=== PATIENT | male | born 1950 | race Caucasian/White ===

== ENCOUNTER 2023-07-28 09:04 | Outpatient (OUT) | payer MEDICARE, SELFPAY ==
[2023-07-29 04:11] LABS: PSA, Free 1.04 ng/mL
== END 2023-07-28 09:05 | disposition home or self-care (01) ==
LOC: LAB 09:09
PROVIDERS: Visit Provider Urology
DX: R97.20 Elevated prostate specific antigen [PSA] (principal)
CPT/HCPCS: 36415; 84153; 84154

== ENCOUNTER 2023-11-23 14:30 | Outpatient (OUT) | payer MEDICARE, SELFPAY ==
[2023-11-23 16:11] LABS: Prostate Specific Antigen Dx 7.69 ng/mL (<=4.00)
== END 2023-11-23 14:31 | disposition home or self-care (01) ==
LOC: LAB 14:31
PROVIDERS: PCP Family Medicine; Visit Provider Urology
DX: R97.20 Elevated prostate specific antigen [PSA] (principal)
CPT/HCPCS: 36415; 84153

== ENCOUNTER 2024-02-29 10:32 | Outpatient (OUT) | payer MEDICARE, SELFPAY ==
--- OUTSIDE RECORDS SUMMARY | 2024-02-29 10:36 | XMS_ITS | CCD ---
Author Organization [facility] Care Team Providers Care Sfdc Developer Name Role Phone SAGE DILLON Admitting Unavailable SAGE DILLON Attending Unavailable SAGE DILLON Consulting Unavailable JEANE RUIZ V Consulting Unavailable Danilo IIIMaxim Primary Care Physician DEBBIE BECKER Attending Unavailable Artur SPANGLER Attending Unavailable Artur SPANGLER Attending Unavailable Maxim Carrasco Referring Unavailable Artur SPANGLER Attending Unavailable Artur SPANGLER Attending Unavailable Allergies Allergy Classification Reported Allergen(s) Allergy Type Date of Onset Reaction(s) Facility (1 source) No Known Medication Allergies; Translations: [No Known Medication Allergies] Propensity to adverse reactions (disorder) [facility] Repository Medications Current Medications Medication Drug Class(es) Dates Sig (Normalized) Sig (Original) atorvastatin 20 mg oral tablet (2 sources) HMG-CoA Reductase Inhibitor Start: 12-21-2018 take 1 tablet by mouth once daily atorvastatin 20 mg Tab 20 mg = 1 tab(s), Oral, Daily, Refills(s) 0, High cholesterol Start Date: 12/21/18 Status: Ordered lisinopril 5 mg oral tablet (2 sources) Angiotensin Converting Enzyme Inhibitor Start: 12-21-2018 take 1 tablet by mouth once daily lisinopril 5 mg Tab 5 mg = 1 tab(s), Oral, Daily, Refills(s) 0, High blood pressure Start Date: 12/21/18 Status: Ordered 24 hr metFORMIN hydrochloride 1000 mg / SITagliptin 50 mg extended release oral tablet (2 sources) Biguanide, Dipeptidyl Peptidase 4 Inhibitor Start: 12-21-2018 take 1 tablet by mouth once daily in the evening Janumet XR 50 mg-1000 mg oral tablet, extended release 1 tab(s), Oral, qPM, Refill(s) 0, High blood sugar Start Date: 12/21/18 Status: Ordered pioglitazone 45 mg oral tablet (2 sources) Peroxisome Proliferator Receptor alpha Agonist, Peroxisome Proliferator Receptor gamma Agonist, Thiazolidinedione Start: 12-21-2018 take 1 tablet by mouth once daily Actos 45 mg Tab 45 mg = 1 tab(s), Oral, Daily, Refills(s) 0, High blood sugar Start Date: 12/21/18 Status: Ordered sildenafil 100 mg oral tablet (2 sources) Phosphodiesterase 5 Inhibitor Start: 12-21-2018 take 1 tablet by mouth once daily Viagra 100 mg Tab 100 mg = 1 tab(s), Oral, Daily, Refills(s) 0, Erectile dysfunction Start Date: 12/21/18 Status: Ordered Problems Problem Classification Problem Date Documented Date Episodic/Chronic Diabetes mellitus without complication (2 sources) Diabetes mellitus 12-21-2018 Chronic Essential hypertension (2 sources) Hypertensive disorder 05-27-2023 Chronic Other male genital disorders (4 sources) Male erectile dysfunction, unspecified; Translations: [Erectile dysfunction] Onset: 4 Chronic Other screening for suspected conditions (not mental disorders or infectious disease) (4 sources) Raised prostate specific antigen; Translations: [Elevated prostate specific antigen [PSA]] Onset: 4 Episodic Residual codes; unclassified (2 sources) FH: Hypercholesterolemia 12-21-2018 Episodi c Thyroid disorders (4 sources) Nontoxic single thyroid nodule; Translations: [NONTOXIC SINGLE THYROID NODULE] Onset: 9 Chronic Results Test Name Value Interpretation Reference Range Facility Reminderson 02-24-2024 Reminders Reminders From: Ariela Saucedo To: SAURABH Spangler; Sent: 11/29/2023 11:21:20 EDT Show up: 01/30/2024 11:21:00 EDT Subject: 3 mos PSA Due Date/Time: 02/29/2024 11:21:00 EDT Reminder Message Pt to repeat PSA level in 3 mos. Typically goes to [facility]. Please monitor for results. Reference OV from 11/29/23 for next steps. Spoke with pt to remind him of PSA and faxed an order to [facility] for him. Normal [facility] Urology Office/Clinic Noteon 11-29-2023 Urology Office/Clinic Note Urology Office/Clinic Note Chief Complaint 6m PSA HPI Staff 6 mos w/ PSA. Dx: elevated PSA, ED. *Sildenafil 100mg prn from PCP PSA 11/23/23 - 7.69 (07/28/23 - 3.0 & 34.7%) Denies pain/burning and visible blood in urine. Getting up 0-1x/night. Denies complaints with stream. Feels empty. Occasional urgency, with rare leaking prior to reaching the bathroom. History of Present Illness Tests reviewed: reviewed UA, PSAs I have reviewed the previous health record information and history for this patient from Dr. Spangler. I have reviewed and verified the staff HPI to be accurate for this encounter. Review of Systems PHQ Score Initial Depression Screen Score: 0 SCORE ROS - Provider Constitutional: denies weight loss, denies hot flashes. Eyes: denies eye problems. Gastrointestinal: denies nausea, denies vomiting. Cardiovascular: denies chest pain or angina. Integumentary: no dryness Musculoskeletal: denies musculoskeletal symptoms. ENMT: denies otolaryngeal symptoms. Respiratory: no shortness of breath. Heme/Lymph: denies easy bleeding tendency, denies easy bruising tendency. Psychiatric: no confusion, no anxiety. Genitourinary: See HPI. Physical Exam Vitals & Measurements HR: 75(Peripheral) RR: 16 BP: 136/81 HT: 71 in HT: 180 cm WT: 86 kg WT: 189.2 lb BMI: 26.54 General Appearance: alert, no distress, well nourished, well developed male. Assessment/Plan 1. Elevated PSA (R97.20: Elevated prostate specific antigen [PSA]) PSA 01/16/22 - 1.51 02/08/23 - 4.28 02/15/23 - 2.7 & 19% 07/28/23 - 3.0 & 34.7% 11/23/23 - 7.69 No known fam hx of prostate ca. VINCENZO 05/31/23: 40gms, benign PSA has increased since prior. Denies any prostatitis sxs. No changes in urination. UA today negative for infection. No hx of prostate bx or MRI. Educated pt on possible etiologies of PSA rise including prostate inflammation without infection and prostate malignancy. Discussed options for management have been discussed, including close monitoring of the PSA over time vs prostate MRI which could lead to a biopsy vs prostate biopsy. Pt is agreeable to close monitoring. States he has an appt with PCP in December and typically has blood work done with PSA. Advised pt to get this done and repeat level in 3 mos. -Repeat PSA in 3 mos -If decreases back to around range 3, will f/u in 6 mos w/ another level. If level remains high or increases, will need to proceed with prostate MRI and bx. 2. ED (erectile dysfunction) (N52.9: Male erectile dysfunction, unspecified) Taking Sildenafil 100mg prn from PCP. [1] Follow-up With When Contact Information CLARI HANSON, Artur Gee, URL [facility] [address], [place] [address]- [phone] Additional Instructions: 3 mos w/ PSA (pt also getting PSA done through PCP) Patient Education Prostate Cancer Screening I, Ariela Saucedo, personally scribed for Dr. Spangler on 11/29/2023 11:04:32. . Documentation recorded by the scribe, Ariela Saucedo, accurately reflects the services(s) I performed and decisions made by me. Authenticated by Dr. Spangler on 11/29/2023 11:08:33. Problem List/Past Medical History Ongoing Diabetes ED (erectile dysfunction) Elevated PSA FH: hypercholesterolemia HTN (hypertension) Historical No qualifying data Procedure/Surgical History Thyroidectomy (09/22/2015), Appendectomy (05/24/1964), Tonsillectomy (09/22/1959), Colonoscopy. Medications Actos 45 mg Tab, 45 mg= 1 tab(s), Oral, Daily atorvastatin 20 mg Tab, 20 mg= 1 tab(s), Oral, Daily Janumet XR 50 mg-1000 mg oral tablet, extended release, 1 tab(s), Oral, qPM lisinopril 5 mg Tab, 5 mg= 1 tab(s), Oral, Daily Viagra 100 mg Tab, 100 mg= 1 tab(s), Oral, Daily Allergies No Known Allergies No Known Medication Allergies Social History Alcohol - Low Risk, 12/21/2018 Exercise - Regular exercise, 12/21/2018 Substance Abuse - Denies Substance Abuse, 12/21/2018 Tobacco Never (less than 100 in lifetime) Tobacco Use:. Never Smokeless Tobacco Use:. Household tobacco concerns: No. Yes, 11/29/2023 Family History Family history is negative Immunizations Vaccine Date Status zoster vaccine, inactivated 08/29/2020 Recorded SARS-CoV-2 (COVID-19) mRNA BNT-162b2 vax 07/27/2020 Recorded SARS-CoV-2 (COVID-19) mRNA BNT-162b2 vax 07/06/2020 Recorded zoster vaccine, inactivated 05/20/2020 Recorded pneumococcal 13-valent vaccine 05/20/2020 Recorded influenza virus vaccine, inactivated 05/20/2020 Recorded pneumococcal 13-valent vaccine 06/17/2018 Recorded pneumococcal 23-valent vaccine 04/23/2017 Recorded diphtheria/pertussis, acel/tetanus adult 09/01/2014 Recorded influenza virus vaccine, inactivated 06/16/2013 Recorded Lab Results Ambulatory Point of Care Results Bilirubin Urine Dipstick: 1+ Small (11/29/23 10:01:00) Blood Urine Dipstick: Trace-intact (11/29/23 10:01:00) Glucose Urine Dipstick: 2+ 500 mg/dl (11/29/23 (more content not included)... Normal [facility] Comment on above: Result Comment: Elec tronically Signed By: Artur SPANGLER MD\.br\Date and Time Signed: 11/29/23 11:08 EDT\.br\Electronically Co-Signed By: Ariela Saucedo\.br\Date and Time Co-Signed: 11/29/23 11:06 EDT Physician Referralon 024 Physician Referral [id number] [facility] Screenson 06-01-2023 Screens [id number] [facility] Patient Educationon 05-31-19 Patient Education Oncology Prostate Cancer Screening Prostate cancer screening is testing that is done to check for the presence of prostate cancer in men. The prostate gland is a walnut-sized gland that is located below the bladder and in front of the rectum in males. The function of the prostate is to add fluid to semen during ejaculation. Prostate cancer is one of the most common types of cancer in men. Who should have prostate cancer screening? Screening recommendations vary based on age and other risk factors, as well as between the professional organizations who make the recommendations. In general, screening is recommended if: ? You are age 50 to 70 and have an average risk for prostate cancer. You should talk with your health care provider about your need for screening and how often screening should be done. Because most prostate cancers are slow growing and will not cause , screening in this age group is generally reserved for men who have a 10- to 15-year life expectancy. ? You are younger than age 50, and you have these risk factors: ? Having a father, brother, or uncle who has been diagnosed with prostate cancer. The risk is higher if your family member's cancer occurred at an early age or if you have multiple family members with prostate cancer at an early age. ? Being a male who is Black or is of [place] or sub-Saharan descent. In general, screening is not recommended if: ? You are younger than age 40. ? You are between the ages of 40 and 49 and you have no risk factors. ? You are 70 years of age or older. At this age, the risks that screening can cause are greater than the benefits that it may provide. If you are at high risk for prostate cancer, your health care provider may recommend that you have screenings more often or that you start screening at a younger age. How is screening for prostate cancer done? The recommended prostate cancer screening test is a blood test called the prostate-specific antigen (PSA) test. PSA is a protein that is made in the prostate. As you age, your prostate naturally produces more PSA. Abnormally high PSA levels may be caused by: ? Prostate cancer. ? An enlarged prostate that is not caused by cancer (benign prostatic hyperplasia, or BPH). This condition is very common in older men. ? A prostate gland infection (prostatitis) or urinary tract infection. ? Certain medicines such as male hormones (like testosterone) or other medicines that raise testosterone levels. A rectal exam may be done as part of prostate cancer screening to help provide information about the size of your prostate gland. When a rectal exam is performed, it should be done after the PSA level is drawn to avoid any effect on the results. Depending on the PSA results, you may need more tests, such as: ? A physical exam to check the size of your prostate gland, if not done as part of screening. ? Blood and imaging tests. ? A procedure to remove tissue samples from your prostate gland for testing (biopsy). This is the only way to know for certain if you have prostate cancer. What are the benefits of prostate cancer screening? ? Screening can help to identify cancer at an early stage, before symptoms start and when the cancer can be treated more easily. ? There is a small chance that screening may lower your risk of dying from prostate cancer. The chance is small because prostate cancer is a slow-growing cancer, and most men with prostate cancer from a different cause. What are the risks of prostate cancer screening? The main risk of prostate cancer screening is diagnosing and treating prostate cancer that would never have caused any symptoms or problems. This is called overdiagnosisand overtreatment. PSA screening cannot tell you if your PSA is high due to cancer or a different cause. A prostate biopsy is the only procedure to diagnose prostate cancer. Even the results of a biopsy may not tell you if your cancer needs to be treated. Slow-growing prostate cancer may not need any treatment other than monitoring, so diagnosing and treating it may cause unnecessary stress or other side effects. Questions to ask your health care provider ? When should I start prostate cancer screening? ? What is my risk for prostate cancer? ? How often do I need screening? ? What type of screening tests do I need? ? How do I get my test results? ? What do my results mean? ? Do I need treatment? Where to find more information ? The [place] [employer]: www.cancer.org ? [place] [employer]: www.auanet.org Contact a health care provider if: ? You have difficulty urinating. ? You have pain when you urinate or ejaculate. ? You have blood in your urine or semen. ? You have pain in your back or in the area of your prostate. Summary ? Prostate cancer is a common type of cancer in men. The prostate gland is located below the bladder and in front of the rectum. This gland adds flu (more content not included)... Normal [facility] THYROIDon 05-03-2019 THYROID Patient: EMMA RHOADES Exam Date: 05/03/2019 : 1950 Gender:M Ordering : DR SAGE DILLON M.D. Admission #: [id number] Family : Order #: [id number] CLICK HERE TO VIEW EXAM RADIOLOGY REPORT PROCEDURE: ULTRASOUND THYROID COMPARISON: US THYROID, 05/03/2018. INDICATIONS: Thyroid nodule TECHNIQUE: Sonographic images of the thyroid gland were obtained. FINDINGS: RIGHT LOBE: Surgically absent LEFT LOBE: Multiple hypoechoic areas largest measures 0.6 x 0.5 x 0.5cm. Lobe size: 4.3 x 1.9 x 1.7 cm ISTHMUS: Normal size and echotexture. CONCLUSION: 1. Subcentimeter left thyroid nodules, stable and nonspecific Dictated by: Jeane Ruiz M.D. on 05/03/2019 at 10:37 Approved by: Jeane Ruiz M.D. on 05/03/2019 at 10:37 Normal [facility] Vital Signs Date Time Vital Sign Value Performing Clinician Marce deluna 11-29-2023 10:02-0400 Blood Pressure Location Artur SPANGLER [facility] 11-29-2023 10:02-0400 Diastolic blood pressure 81 mm[Hg] Artur SPANGLER [facility] 11-29-2023 10:02-0400 Heart rate 75 /min Artur SPANGLER [facility] 11-29-2023 10:02-0400 Respiratory rate 16 /min Artur SPANGLER [facility] 11-29-2023 10:02-0400 Systolic blood pressure 136 mm[Hg] Artur SPANGLER [facility] 05-31-2023 09:15-0500 Blood Pressure Location Artur SPANGLER [facility] 05-31-2023 09:15-0500 Diastolic blood pressure 73 mm[Hg] Artur SPANGLER [facility] 05-31-2023 09:15-0500 Heart rate 68 /min Artur SPANGLER [facility] 05-31-2023 09:15-0500 Respiratory rate 16 /min Artur SPANGLER [facility] 05-31-2023 09:15-0500 Systolic blood pressure 119 mm[Hg] Artur SPANGLER [facility] Encounters Encounter Date Encounter Type Care Provider Facility Start: 03-08-2024 ambulatory Artur SPANGLER [facility] ty[facility] Start: 02-28-2024 [facility] Start: 01-07-2024 End: 01-07-2024 ambulatory DEBBIE BECKER Not Available Start: 11-29-2023 End: 11-29-2023 ambulatory Artur SPANGLER Facility:[facility] Start: 11-29-2023 End: 11-29-2023 Patient encounter procedure Artur SPANGLER [facility] Start: 05-31-2023 End: 05-31-2023 [facility]ulatory [facility] Start: 05-31-2023 End: 05-31-2023 Patient encounter procedure Artur SPANGLER [facility] Start: 02-26-2023 ambulatory Artur SPANGLER Facility :[facility] [place] Start: 05-03-2019 End: 05-04-2019 Patient encounter procedure SAGE DILLON Facility:[facility] Procedures Date Procedure Procedure Detail Performing Clinician Start: 09-22-2015 Thyroidectomy Artur JASON Start: 05-24-1964 Appendectomy Artur YBARRA Start: 09-22-1959 Tonsillectomy Artur JASON Colonoscopy Artur SPANGLER Immunizations Immunization Date Immunization Notes Care Provider Louisa elmore 08-29-2020 zoster vaccine recombinant Artur SPANGLER [facility] 07-27-2020 SARS-CoV-2 (COVID-19 ) mRNA BNT-162b2 vax Artur SPANGLER [facility] 07-06-2020 SARS-CoV-2 (COVID-19 ) mRNA BNT-162b2 vax Artur SPANGLER [facility] 05-20-2020 influenza virus vacc ine, unspecified formulation Artur SPANGLER [facility] 05-20-2020 pneumococcal conjuga te vaccine, 13 valent Artur SPANGLER [facility] 05-20-2020 zoster vaccine recombinant Artur SPANGLER [facility] 06-17-2018 pneumococcal conjuga te vaccine, 13 valent Artur SPANGLER [facility] 04-23-2017 pneumococcal polysaccharide vaccine, 23 valent Artur SPANGLER [facility] 09-01-2014 tetanus toxoid, redu jeffry diphtheria toxoid, and acellular pertussis vaccine, adsorbed Artur SPANGLER [facility] 06-16-2013 influenza virus vacc ine, unspecified formulation Artur SPANGLER [facility] Payers Date Payer Category Payer Medicare [id number] 1958 Medicare [id number] 1958 Unknown [id number] 1950 Unknown [id number] 1950 Unknown [id number] [id number] 1950 Unknown [id number] 2.16.8 [id number] 1950 Unknown [id number] 2.16.8 [id number] 1950 Unknown [id number] 2.16.8 [id number] 1950 Unknown [id number] 2.16.8 [id number] Social History Date Type Detail Facility Start: 05-31-2023 End: 11-29-2023 Tobacco smoking status Never smoked tobacco (finding) [facility] Tobacco smoking status Never [facility] Sex Assigned At Male [facility] Functional Status Date Assessment Result Facility 11-29-2023 Functional Status N/A [facility] 05-31-2023 Functional Status N/A [facility] Hospital Discharge instructions 11-29-2023 Note Date & Type Note Facility 11-29-2023 Hospital Discharge instructions Patient Education 11/29/2023 11:00:37 Prostate Cancer Screening Prostate Cancer Screening Prostate cancer screening is testing that is done to check for the presence of prostate cancer in men. The prostate gland is a walnut-sized gland that is located below the bladder and in front of the rectum in males. The function of the prostate is to add fluid to semen during ejaculation. Prostate cancer is one of the most common types of cancer in men. Who should have prostate cancer screening? Screening recommendations vary based on age and other risk factors, as well as between the professional organizations who make the recommendations. In general, screening is recommended if: You are age 50 to 70 and have an average risk for prostate cancer. You should talk with your health care provider about your need for screening and how often screening should be done. Because most prostate cancers are slow growing and will not cause , screening in this age group is generally reserved for men who have a 10- to 15-year life expectancy. You are younger than age 50, and you have these risk factors: ?Having a father, brother, or uncle who has been diagnosed with prostate cancer. The risk is higher if your family member's cancer occurred at an early age or if you have multiple family members with prostate cancer at an early age. ?Being a male who is Black or is of [place] or sub-Saharan descent. In general, screening is not recommended if: You are younger than age 40. You are between the ages of 40 and 49 and you have no risk factors. You are 70 years of age or older. At this age, the risks that screening can cause are greater than the benefits that it may provide. If you are at high risk for prostate cancer, your health care provider may recommend that you have screenings more often or that you start screening at a younger age. How is screening for prostate cancer done? The recommended prostate cancer screening test is a blood test called the prostate-specific antigen (PSA) test. PSA is a protein that is made in the prostate. As you age, your prostate naturally produces more PSA. Abnormally high PSA levels may be caused by: Prostate cancer. An enlarged prostate that is not caused by cancer (benign prostatic hyperplasia, or BPH). This condition is very common in older men. A prostate gland infection (prostatitis) or urinary tract infection. Certain medicines such as male hormones (like testosterone) or other medicines that raise testosterone levels. A rectal exam may be done as part of prostate cancer screening to help provide information about the size of your prostate gland. When a rectal exam is performed, it should be done after the PSA level is drawn to avoid any effect on the results. Depending on the PSA results, you may need more tests, such as: A physical exam to check the size of your prostate gland, if not done as part of screening. Blood and imaging tests. A procedure to remove tissue samples from your prostate gland for testing (biopsy). This is the only way to know for certain if you have prostate cancer. What are the benefits of prostate cancer screening? Screening can help to identify cancer at an early stage, before symptoms start and when the cancer can be treated more easily. There is a small chance that screening may lower your risk of dying from prostate cancer. The chance is small because prostate cancer is a slow-growing cancer, and most men with prostate cancer from a different cause. What are the risks of prostate cancer screening? The main risk of prostate cancer screening is diagnosing and treating prostate cancer that would never have caused any symptoms or problems. This is called overdiagnosisand overtreatment. PSA screening cannot tell you if your PSA is high due to cancer or a different cause. A prostate biopsy is the only procedure to diagnose prostate cancer. Even the results of a biopsy may not tell you if your cancer needs to be treated. Slow-growing prostate cancer may not need any treatment other than monitoring, so diagnosing and treating it may cause unnecessary stress or other side effects. Questions to ask your health care provider When should I start prostate cancer screening? What is my risk for prostate cancer? How often do I need screening? What type of screening tests do I need? How do I get my test results? What do my results mean? Do I need treatment? Where to find more information The [place] [employer]: www.cancer.org [place] Urological Association: www.auanet.org Contact a health care provider if: You have difficulty urinating. You have pain when you urinate or ejaculate. You have blood in your urine or semen. You have pain in your back or in the area of your prostate. Summary Prostate cancer is a common type of cancer in men. The prostate gland is located below the bladder and in front of the rectum. This gland adds fluid to semen during ejaculation. Prostate cancer screening may identify cancer at an early stage, when the cancer can be treated more easily and is less likely to have spread to other areas of the body. The prostate-specific antigen (PSA) test is the recommended screening test for prostate cancer, but it has associated risks. Discuss the risks and benefits of prostate cancer screening with your health care provider. If you are age 70 or older, the risks that screening can cause are greater than the benefits that it may provide. This information is not intended to replace advice given to you by your health care provider. Make sure you discuss any questions you have with your health care provider. Document Revised: 11/03/2021 Document Reviewed: 11/03/2021 thereNow Patient Education 2022 Accurence. Follow Up Care 05/31/2023 10:15:57 With:CLARI HANSON, Artur Gee, URL Address: [facility] [address] [place] [address] [phone] When: Unknown [facility] Clinical Note 11-29-2023 Note Date & Type Note Facility 11-29-2023 Note Patient Education Oncology Prostate Cancer Screening Prostate cancer screening is testing that is done to check for the presence of prostate cancer in men. The prostate gland is a walnut-sized gland that is located below the bladder and in front of the rectum in males. The function of the prostate is to add fluid to semen during ejaculation. Prostate cancer is one of the most common types of cancer in men. Who should have prostate cancer screening? Screening recommendations vary based on age and other risk factors, as well as between the professional organizations who make the recommendations. In general, screening is recommended if: ? You are age 50 to 70 and have an average risk for prostate cancer. You should talk with your health care provider about your need for screening and how often screening should be done. Because most prostate cancers are slow growing and will not cause , screening in this age group is generally reserved for men who have a 10- to 15-year life expectancy. ? You are younger than age 50, and you have these risk factors: ? Having a father, brother, or uncle who has been diagnosed with prostate cancer. The risk is higher if your family member's cancer occurred at an early age or if you have multiple family members with prostate cancer at an early age. ? Being a male who is Black or is of Bal[place] or sub-Saharan descent. In general, screening is not recommended if: ? You are younger than age 40. ? You are between the ages of 40 and 49 and you have no risk factors. ? You are 70 years of age or older. At this age, the risks that screening can cause are greater than the benefits that it may provide. If you are at high risk for prostate cancer, your health care provider may recommend that you have screenings more often or that you start screening at a younger age. How is screening for prostate cancer done? The recommended prostate cancer screening test is a blood test called the prostate-specific antigen (PSA) test. PSA is a protein that is made in the prostate. As you age, your prostate naturally produces more PSA. Abnormally high PSA levels may be caused by: ? Prostate cancer. ? An enlarged prostate that is not caused by cancer (benign prostatic hyperplasia, or BPH). This condition is very common in older men. ? A prostate gland infection (prostatitis) or urinary tract infection. ? Certain medicines such as male hormones (like testosterone) or other medicines that raise testosterone levels. A rectal exam may be done as part of prostate cancer screening to help provide information about the size of your prostate gland. When a rectal exam is performed, it should be done after the PSA level is drawn to avoid any effect on the results. Depending on the PSA results, you may need more tests, such as: ? A physical exam to check the size of your prostate gland, if not done as part of screening. ? Blood and imaging tests. ? A procedure to remove tissue samples from your prostate gland for testing (biopsy). This is the only way to know for certain if you have prostate cancer. What are the benefits of prostate cancer screening? ? Screening can help to identify cancer at an early stage, before symptoms start and when the cancer can be treated more easily. ? There is a small chance that screening may lower your risk of dying from prostate cancer. The chance is small because prostate cancer is a slow-growing cancer, and most men with prostate cancer from a different cause. What are the risks of prostate cancer screening? The main risk of prostate cancer screening is diagnosing and treating prostate cancer that would never have caused any symptoms or problems. This is called overdiagnosisand overtreatment. PSA screening cannot tell you if your PSA is high due to cancer or a different cause. A prostate biopsy is the only procedure to diagnose prostate cancer. Even the results of a biopsy may not tell you if your cancer needs to be treated. Slow-growing prostate cancer may not need any treatment other than monitoring, so diagnosing and treating it may cause unnecessary stress or other side effects. Questions to ask your health care provider ? When should I start prostate cancer screening? ? What is my risk for prostate cancer? ? How often do I need screening? ? What type of screening tests do I need? ? How do I get my test results? ? What do my results mean? ? Do I need treatment? Where to find more information ? The [place] [employer]: www.cancer.org ? [place] [employer]: www.auanet.org Contact a health care provider if: ? You have difficulty urinating. ? You have pain when you urinate or ejaculate. ? You have blood in your urine or semen. ? You have pain in your back or in the area of your prostate. Summary ? Prostate cancer is a common type of cancer in men. The prostate gland is located below the bladder and in front of the rectum. (more content not included)... [facility] Hospital Discharge instructions 05-31-2023 Note Date & Type Note Facility 05-31-2023 Hospital Discharge instructions Patient Education 05/31/2023 09:52:27 Prostate Cancer Screening Prostate Cancer Screening Prostate cancer screening is testing that is done to check for the presence of prostate cancer in men. The prostate gland is a walnut-sized gland that is located below the bladder and in front of the rectum in males. The function of the prostate is to add fluid to semen during ejaculation. Prostate cancer is one of the most common types of cancer in men. Who should have prostate cancer screening? Screening recommendations vary based on age and other risk factors, as well as between the professional organizations who make the recommendations. In general, screening is recommended if: You are age 50 to 70 and have an average risk for prostate cancer. You should talk with your health care provider about your need for screening and how often screening should be done. Because most prostate cancers are slow growing and will not cause , screening in this age group is generally reserved for men who have a 10- to 15-year life expectancy. You are younger than age 50, and you have these risk factors: ?Having a father, brother, or uncle who has been diagnosed with prostate cancer. The risk is higher if your family member's cancer occurred at an early age or if you have multiple family members with prostate cancer at an early age. ?Being a male who is Black or is of Baldev or sub-Saharan descent. In general, screening is not recommended if: You are younger than age 40. You are between the ages of 40 and 49 and you have no risk factors. You are 70 years of age or older. At this age, the risks that screening can cause are greater than the benefits that it may provide. If you are at high risk for prostate cancer, your health care provider may recommend that you have screenings more often or that you start screening at a younger age. How is screening for prostate cancer done? The recommended prostate cancer screening test is a blood test called the prostate-specific antigen (PSA) test. PSA is a protein that is made in the prostate. As you age, your prostate naturally produces more PSA. Abnormally high PSA levels may be caused by: Prostate cancer. An enlarged prostate that is not caused by cancer (benign prostatic hyperplasia, or BPH). This condition is very common in older men. A prostate gland infection (prostatitis) or urinary tract infection. Certain medicines such as male hormones (like testosterone) or other medicines that raise testosterone levels. A rectal exam may be done as part of prostate cancer screening to help provide information about the size of your prostate gland. When a rectal exam is performed, it should be done after the PSA level is drawn to avoid any effect on the results. Depending on the PSA results, you may need more tests, such as: A physical exam to check the size of your prostate gland, if not done as part of screening. Blood and imaging tests. A procedure to remove tissue samples from your prostate gland for testing (biopsy). This is the only way to know for certain if you have prostate cancer. What are the benefits of prostate cancer screening? Screening can help to identify cancer at an early stage, before symptoms start and when the cancer can be treated more easily. There is a small chance that screening may lower your risk of dying from prostate cancer. The chance is small because prostate cancer is a slow-growing cancer, and most men with prostate cancer from a different cause. What are the risks of prostate cancer screening? The main risk of prostate cancer screening is diagnosing and treating prostate cancer that would never have caused any symptoms or problems. This is called overdiagnosisand overtreatment. PSA screening cannot tell you if your PSA is high due to cancer or a different cause. A prostate biopsy is the only procedure to diagnose prostate cancer. Even the results of a biopsy may not tell you if your cancer needs to be treated. Slow-growing prostate cancer may not need any treatment other than monitoring, so diagnosing and treating it may cause unnecessary stress or other side effects. Questions to ask your health care provider When should I start prostate cancer screening? What is my risk for prostate cancer? How often do I need screening? What type of screening tests do I need? How do I get my test results? What do my results mean? Do I need treatment? Where to find more information The [place] [employer]: www.cancer.org [place] [employer]: www.auanet.org Contact a health care provider if: You have difficulty urinating. You have pain when you urinate or ejaculate. You have blood in your urine or semen. You have pain in your back or in the area of your prostate. Summary Prostate cancer is a common type of cancer in men. The prostate gland is located below the bladder and in front of the rectum. This gland adds fluid to semen during ejaculation. Prostate cancer screening may identify cancer at an early stage, when the cancer can be treated more easily and is less likely to have spread to other areas of the body. The prostate-specific antigen (PSA) test is the recommended screening test for prostate cancer, but it has associated risks. Discuss the risks and benefits of prostate cancer screening with your health care provider. If you are age 70 or older, the risks that screening can cause are greater than the benefits that it may provide. This information is not intended to replace advice given to you by your health care provider. Make sure you discuss any questions you have with your health care provider. Document Revised: 11/03/2021 Document Reviewed: 11/03/2021 thereNow Patient Education 2022 Accurence. Follow Up Care 02/26/2023 11:36:15 With:CLARI HANSON, Artur Gee, URL Address: [facility] [address] , [facility] [place] [address]- [phone] When: Unknown Comments:6 mos w/ PSA [facility] Clinical Note 05-31-2023 Note Date & Type Note Facility 05-31-2023 Note Chief Complaint Referral *Elevated PSA HPI Staff Evaluation requested by Dr Maxim Carrasco due to elevated PSA. Pt is a new pt. Never before seen in our office. (Verified on DA) Denies family Hx of Prostate Cancer. Currently taking Viagra 100mg PRN from PCP Per pt, Dr Carrasco performed VINCENZO. States he was told everything felt fine Frequency only with coffee intake and increased water. Urgency. Occasional. Is diabetic. States he is not bothered by the frequency nor urgency. Denies complaints with urinary stream. Denies leaking. Denies any urinary concerns at this time. PSA 02/08/23- 4.28 02/15/23- 2.7 & 19% History of Present Illness Tests reviewed: reviewed UA, referral records, PSA I have reviewed the previous health record information and history for this patient from external providers. I have reviewed and verified the staff HPI to be accurate for this encounter. Review of Systems PHQ Score Initial Depression Screen Score: 0 SCORE ROS - Provider Constitutional: denies weight loss, denies hot flashes. Eyes: denies eye problems. Gastrointestinal: denies nausea, denies vomiting. Cardiovascular: denies chest pain or angina. Integumentary: no dryness Musculoskeletal: denies musculoskeletal symptoms. ENMT: denies otolaryngeal symptoms. Respiratory: no shortness of breath. Heme/Lymph: denies easy bleeding tendency, denies easy bruising tendency. Psychiatric: no confusion, no anxiety. Genitourinary: See HPI. Physical Exam Vitals & Measurements HR: 68(Peripheral) RR: 16 BP: 119/73 HT: 71 in HT: 180 cm WT: 86.5 kg WT: 190.3 lb BMI: 26.7 General Appearance: alert, no distress, well nourished, well developed male. Head: normocephalic . Eyes: normal orbit and globe. ENMT: normal examination of external ears. Chest: Lungs CTA, respirations non labored. Cardiovascular: regular rate and rhythm. Abdomen: soft, non distended, no tenderness, no mass or organomegaly, no hernia. Genitourinary: normal scrotum, normal testes, normal urethra, normal epididymis, normal vas deferens/spermatic cord. Flank Pain: none. Bladder: nonpalpable. Penis: normal shaft, normal glans. Prostate: normal prostate, estimated weight 40 gms, no hard nodule observed. sl asymmetry R>L but no induration. Lymph Nodes: unremarkable palpation of the cervical area. Skin: warm, dry, no bruising. Psychiatric: cooperative, affect appropriate for age, normal judgement, euthymic mood. Assessment/Plan Cande is a 72 yo male new pt referred by Dr. Maxim Carrasco for elevated PSA. 1. Elevated PSA (R97.20: Elevated prostate specific antigen [PSA]) PSA 01/16/22 - 1.51 02/08/23 - 4.28 02/15/23 - 2.7 & 19% No known fam hx of prostate ca. VINCENZO 02/15/[address] Carrasco: no nodules, non-tender. VINCENZO today: 40gms, benign Voids 1-2x/night, occasionally. Feels he empties completely. UA today negative for blood and infection. Discussed PSA levels. Has a fluctuating level. 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 The importance of the rate of PSA rise has also been discussed. Advised pt he has an elevated PSA, which could indicate prostate cancer, prostate infection, prostate inflammation without infection, prostate manipulation, or benign prostate enlargement (BPH). Denies hx of prostate infections. Discussed close monitoring of PSA to obtain a longer trend. Pt agrees with plan. -PSA in 3 mos @ [facility] -F/u in 6 mos w/ PSA 2. ED (erectile dysfunction) (N52.9: Male erectile dysfunction, unspecified) Taking Sildenafil 100mg prn from PCP. Follow-up With When Contact Information CLARI HANSON, Artur Gee, URL [facility] [address], [place] [address] [phone] Additional Instructions: 6 mos w/ PSA Patient Education Prostate Cancer Screening I, Ariela Saucedo, personally scribed for Dr. Spangler on 05/31/2023 10:01:22. . Documentation recorded by the scribe, Ariela Saucedo, accurately reflects the services(s) I performed and decisions made by me. Authenticated by Dr. Spangler on 05/31/2023 10:05:37. Problem List/Past Medical History Ongoing Diabetes ED (erectile dysfunction) Elevated PSA FH: hypercholesterolemia HTN (hypertension) Historical No qualifying data Procedure/Surgical History Thyroidectomy (09/22/2015), Appendectomy (05/24/1964), Tonsillectomy (09/22/1959), Colonoscopy. Medications Actos 45 mg Tab, 45 mg= 1 tab(s), Oral, Daily atorvastatin 20 mg Tab, 20 mg= 1 tab(s), Oral, Daily Janumet XR 50 mg-1000 mg oral tablet, extended release, 1 tab(s), Oral, qPM lisinopril 5 mg Tab, 5 mg= 1 tab(s), Oral, Daily Viagra 100 mg Tab, 100 mg= 1 tab(s), Oral, Daily Allergies No Known Allergies No Known Medication Allergies Social History Alcohol - Low Risk, 12/21/2018 Exercise - Regular exercise, 12/21/2018 Substance Abuse - Denies Substance Abuse, 12/21/2018 Tobacco Never (less than 100 in lifetime) Tobacco Use:. (more content not included)... [facility] Comment on above: Result Comment: Elec tronically Signed By: Artur SPANGLER MD\.br\Date and Time Signed: 05/31/23 10:05 EST\.br\Electronically Co-Signed By: Ariela Saucedo\.br\Date and Time Co-Signed: 05/31/23 10:02 EST Evaluation + Plan note Note Date & Type Note Facility Evaluation + Plan note Future Appointments Appointment Date:11/29/2023 09:45:00 AM Scheduled Provider:Artur SPANGLER MD Location:[facility] Appointment Type:URO Office Visit Diagnostic Tests PendingPSA Total 05/31/23 [facility] Evaluation + Plan note Note Date & Type Note Facility Evaluation + Plan note Future Appointments Appointment Date:03/08/2024 02:45:00 PM Scheduled Provider:Artur SPANGLER MD Location:[facility] Appointment Type:URO Office Visit Diagnostic Tests PendingPSA Total 11/29/23 [facility] Hospital course Narrative Note Date & Type Note Facility Hospital course Narrative No data available for this section [facility] Progress note Note Date & Type Note Facility Progress note No data available for this section [facility] Summary Purpose Family History No Family History Records Found No data available for this section No data available for this section No Family History Records FoundNo Family History Records Found Advance Directives No Advanced Directives Records FoundNo Advanced Directives Records FoundNo Advanced Directives Records Found Additional Source Comments (unrecognized sect ion and content) No Status Records FoundNo Status Records FoundNo Status Records Found INFORMATION SOURCE (unrecogn ized section and content) DATE CREATED AUTHOR 05/04/2019 [facility] DATE CREATED AUTHOR AUTHOR'S ORGANIZ ATION 01/09/2024 [facility] EPIC DATE CREATED AUTHOR AUTHOR'S GRIS ATION 02/26/2024 [facility] Patient Care team informatio n (unrecognized section and content) Personnel Name: Maxim Carrasco III, DO Address: Address: [address] [place] [address], [address] Personnel Name: Maxim Carrasco III, DO Address: Address: [address] [place] [address], [address] FOR RECORDS PERTAINING TO PATIENTS WHO ARE OR HAVE BEEN ENROLLED IN A CHEMICAL DEPENDENCY/SUBSTANCEABUSE PROGRAM, SOME INFORMATION MAY BE OMITTED. This clinical summary was aggregated from multiple sources. Caution should be exercised in using it in the provision of clinical care. This summary normalizes information from multiple sources, and as a consequence, information in this document may materially change the coding, format and clinical context of patient data. In addition, data may be omitted in some cases. CLINICAL DECISIONS SHOULD BE BASED ON THE PRIMARY CLINICAL RECORDS. [employer] provides no warranty or guarantee of the accuracy or completeness of information in this document.
[2024-02-29 17:17] LABS: Prostate Specific Antigen Dx 2.66 ng/mL (<=4.00)
== END 2024-02-29 10:33 | disposition home or self-care (01) ==
LOC: LAB 10:33
PROVIDERS: PCP Family Medicine; Visit Provider Urology
DX: R97.20 Elevated prostate specific antigen [PSA] (principal)
CPT/HCPCS: 36415; 84153